=== PATIENT | female | born 1965 | race Caucasian/White ===

== ENCOUNTER 2018-01-28 04:02 | Emergency (ER) | payer OTHER ==
[~2018-01-28] VITALS: Ht 162.6 cm; Wt 72.6 kg
[2018-01-28 04:10] VITALS: BP_SYST 143
[2018-01-28] MEDS ORDERED: KETOROLAC TROMETHAMINE 60 MG/2 ML VIAL IM ONE (04:30)
[2018-01-28 05:18] VITALS: BP_SYST 127
== END 2018-01-28 05:18 | disposition home or self-care (01) ==
LOC: SED 04:02
DX: M54.41 Lumbago with sciatica, right side (principal)
CPT/HCPCS: 73502; 96372; 99284; J1885